=== PATIENT | male | born 1960 | race Caucasian/White ===

== ENCOUNTER 2020-07-24 11:09 | Emergency (ER) | payer SELFPAY ==
[2020-07-24] MEDS ORDERED: Ketorolac Tromethamine 30 MG/ML VIAL ONE (11:38)
[2020-07-24] MEDS ORDERED: Acetaminophen 500 MG TAB ONE (11:38)
[2020-07-24] MEDS ORDERED: Boostrix 0.5 ML VIAL ONE (11:39)
--- NOTE | 2020-07-24 12:07 | CT ---
EXAM: CT Thoracic Spine WO Con DATE: 07/24/2020 11:35 AM INDICATION: Fall with back pain COMPARISON: None. FINDING: No acute fracture or subluxation demonstrated. There is scattered degenerative and osteoart hritic change present. The visualized lungs are clear. The visualized paraspinal soft tissues appear within normal limits. There are calcified granuloma in the right hilar region as well as withi n the right upper lobe of the lung. There are coronary artery and thoracic aortic calcifications. IMPRESSION:No acute fracture or subluxation demonstrated.
--- NOTE | 2020-07-24 12:07 | CT ---
CT Pelvis WO Con History: Pain. Fall Comparison: None. Findings: Comminuted fracture of the coccyx, which is comminuted involving C1 with a sagittal fractur e through the midportion of the coccyx with comminution of the right-sided portion of the C1 body. C2 and C3 are maintained. S5 is intact. The SI joints are not widened and have bridging anterior osteophytes. Pubic symphysis is maintained. Obturator rings are intact. The femoral heads and necks are intact. No free intraperitoneal gas or fluid. There is also a fracture of event listhesis of the right sacrot uberous ligament. Impression: 1. Mildly comminuted fracture of the coccyx involving C1 at the sacrococcygeal joint. 2. Fracture through the calcified enthesis of the right sacrotuberous ligament at the ischial tuberos ity.
--- NOTE | 2020-07-24 12:10 | CT ---
CT Lumbar Spine WO Con History: Fall Comparison: None. Findings: Aortic contour is nonaneurysmal. No retroperitoneal periaortic adenopathy. No hydronephrosi s. Paraspinal musculature is symmetric. Multiple Schmorl's nodes. Mild degenerative facet arthropathy lo wer lumbar spine. Mild narrowing of the interspinous space. No acute fracture or malalignment. 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 Impression: No acute lumbar spine fracture. Please see pelvis CT for fracture findings.
--- NOTE | 2020-07-24 12:24 | RAD ---
PORTABLE CHEST: Date: 07/24/2020 HISTORY: Fall. FINDINGS: Heart size is within normal limits. Mediastinal structures are unremarkable. Lungs are clear of infil trates. IMPRESSION: Unremarkable portable chest. POS: J[facility]ANA
--- NOTE | 2020-07-24 12:25 | RAD ---
XR Hip Rt 2-3 View INDICATION: Fall from stairs with right hip pain COMPARISON: None FINDINGS: Bones: No definite acute osseous abnormality is evident. There is a fractured calcified right sacrotu berous ligament. There is a minimally displaced proximal coccygeal fracture. Hip joint: There is mild right hip osteoarthrosis. SI joints and symphysis pubis: Radiographically normal. Intrapelvic contents: Visualized bowel gas pattern is within normal limits. Surrounding soft tissues: Radiographically normal. IMPRESSION: 1. Minimally displaced proximal coccygeal fracture. 2. Fractured calcified right sacrotuberous ligament. 3. Mild right hip osteoarthrosis.
[2020-07-24 12:38] LABS: #Basophils 0.1 thou/uL (0.0-0.2); #Eosinphils 0.2 thou/uL (0.0-0.7); #Lymphocytes 1.5 thou/uL (1.20-3.40); #Monocytes 1.1 thou/uL (0.11-0.59); #Neutrophils 11.1 thou/uL (1.40-6.50); %Basophils 0.5 % (0.0-1.0); %Eosinophils 1.1 % (0.0-10.0); %Lymphocytes 10.7 % (21.0-51.0); %Monocytes 7.6 % (0.0-10.0); Hemoglobin 14.2 g/dL (14.0-18.0); Mean Corpuscular HGB CONC 34.3 g/dL (32.0-36.0); Mean Corpuscular Hemoglobin 30.9 pg (27.0-31.0); Mean Corpuscular Volume 90.1 fL (78.0-98.0); Mean Platelet Volume 8.9 fL (7.4-10.4); Platelet Count 227 thou/uL (130-400); RBC Distribution Width 11.7 % (11.5-14.5); White Blood Cell (WBC) Count 13.8 thou/uL (4.8-10.8)
[2020-07-24 13:02] LABS: Anion Gap 13 mmol/L (10-20); BUN (Urea Nitrogen) 15 mg/dL (8.4-25.7); Calc. Creatinine Clearance 0 mL/min (70-130); Calcium 9.1 mg/dL (7.8-10.44); Carbon Dioxide 21 mmol/L (22-29); Chloride 111 mmol/L (98-107); Estimated GFR-MDRD 86; Glucose 91 mg/dL (70-105); Potassium 3.8 mmol/L (3.5-5.1); Sodium 141 mmol/L (136-145)
== END 2020-07-24 14:00 | disposition home or self-care (01) ==
LOC: ERS 11:09
DX: S32.2XXA Fracture of coccyx, initial encounter for closed fracture (principal); W01.0XXA Fall on same level from slipping, tripping and stumbling without subsequent striking against object, initial encounter
CPT/HCPCS: 36415; 71045; 72128; 72131; 72192; 80048; 85025; 90471; 90715; 96372; J1885